=== PATIENT | male | born 1970 | race Caucasian/White ===

== ENCOUNTER 2021-04-28 14:20 | Inpatient (IN) | payer OTHER, SELFPAY ==
[2021-04-28 15:27] LABS: #Monocytes 0.4 10x3/uL (0.0-1.1); #Neutrophils 2.5 10x3/uL (1.5-8.4); %Basophils 0.3 % (0.0-2.0); %Lymphocytes 16.9 % (18.0-47.0); %Monocytes 11.2 % (0.0-10.0); Hemoglobin 15.8 g/dL (13.5-17.5); Mean Corpuscular Hemoglobin 31.9 pg (27.0-33.0); Mean Corpuscular Volume 93.9 fl (81.2-95.1); Mean Platelet Volume 10.8 fl (7.4-10.4); Platelet Count 117 10x3/uL (150-450); RBC Distribution Width 12.4 % (11.5-14.5); Red Blood Cell (RBC) Count 4.95 10x6/uL (4.32-5.72); White Blood Cell (WBC) Count 3.6 10x3/uL (3.5-10.5)
[2021-04-28] MEDS ORDERED: Aspirin 325 MG TAB ONE (15:32)
[2021-04-28] MEDS ORDERED: Acetaminophen 500 MG TAB ONE (15:32)
[2021-04-28] MEDS ORDERED: Ibuprofen 200 MG TAB ONE (15:32)
[2021-04-28 15:37] LABS: ALT (SGPT) 56 U/L (8-55); AST (SGOT) 43 U/L (5-34); Albumin 4.1 g/dL (3.5-5.0); Alkaline Phosphatase 132 U/L (40-110); Anion Gap 13 mmol/L (10-20); BUN (Urea Nitrogen) 10 mg/dL (8.9-20.6); Bilirubin, Total 0.6 mg/dL (0.2-1.2); Calc. Creatinine Clearance 0 mL/min (70-130); Calcium 8.4 mg/dL (7.8-10.44); Carbon Dioxide 25 mmol/L (22-29); Chloride 103 mmol/L (98-107); Globulin 2.9 g/dL (2.4-3.5); Glucose 268 mg/dL (70-105); Potassium 3.8 mmol/L (3.5-5.1); Sodium 137 mmol/L (136-145)
[2021-04-28] MEDS ORDERED: Dexamethasone 10 MG/ML VIAL ONE (18:01)
[2021-04-28] MEDS ORDERED: Ondansetron ODT 4 MG TAB PO PRN (18:18)
[2021-04-28] MEDS ORDERED: Calcium Carbonate 500 MG ChewTAB PO PRN (18:18)
[2021-04-28] MEDS ORDERED: Senokot S 8.6-50 MG TAB PO PRN (18:18)
[2021-04-28] MEDS ORDERED: Acetaminophen 325 MG TAB PO PRN (18:18)
[2021-04-28] MEDS ORDERED: Albuterol 200 PUFF (6.7GM INHALER) INH PRN (18:22)
[2021-04-28 19:09] LABS: Troponin I Less than 0.010 ng/mL (< 0.028)
[2021-04-28] MEDS: Guaifenesin DM 100-10/5 ML UDCUP PO PRN (21:50)
[2021-04-28] MEDS: Benzonatate 100 MG CAP PO PRN (21:51)
[2021-04-28 22:05] LABS: Troponin I Less than 0.010 ng/mL (< 0.028)
[2021-04-28 22:28] VITALS: BMI 30.4
[2021-04-29 04:22] LABS: #Monocytes 0.2 10x3/uL (0.0-1.1); #Neutrophils 2.7 10x3/uL (1.5-8.4); %Basophils 0.3 % (0.0-2.0); %Lymphocytes 14.1 % (18.0-47.0); %Monocytes 6.5 % (0.0-10.0); %Neutrophils 78.2 % (40.0-75.0); Hemoglobin 16.2 g/dL (13.5-17.5); Mean Corpuscular HGB CONC 34.4 g/dL (32.0-36.0); Mean Corpuscular Hemoglobin 32.5 pg (27.0-33.0); Mean Corpuscular Volume 94.4 fl (81.2-95.1); Mean Platelet Volume 11.2 fl (7.4-10.4); Platelet Count 119 10x3/uL (150-450); RBC Distribution Width 12.6 % (11.5-14.5); Red Blood Cell (RBC) Count 4.99 10x6/uL (4.32-5.72); White Blood Cell (WBC) Count 3.4 10x3/uL (3.5-10.5)
[2021-04-29 04:36] LABS: Anion Gap 14 mmol/L (10-20); BUN (Urea Nitrogen) 14 mg/dL (8.9-20.6); Calc. Creatinine Clearance 0 mL/min (70-130); Calcium 8.8 mg/dL (7.8-10.44); Carbon Dioxide 24 mmol/L (22-29); Chloride 104 mmol/L (98-107); Glucose 353 mg/dL (70-105); Sodium 138 mmol/L (136-145)
[2021-04-29] MEDS ORDERED: Dextrose 5% in Water 1,000 ML IV PRN (07:00)
[2021-04-29] MEDS ORDERED: Dextrose 50% Abboject 50 ML SYRINGE SLOW IVP PRN (07:00)
[2021-04-29] MEDS ORDERED: HumaLOG 300 UNITS/3 ML VIAL SC PRN (07:00)
[2021-04-29] MEDS: Lisinopril 10 MG TAB PO SCH (07:09)
[2021-04-29] MEDS ORDERED: NPH, Human Insulin Isophane 300 UNIT/3 ML VIAL SC SCH (07:15)
[2021-04-29] MEDS: Guaifenesin DM 100-10/5 ML UDCUP PO PRN ×2 (08:52→20:32)
[2021-04-29] MEDS: Ascorbic Acid 500 mg Chewable Tablet PO SCH (08:52)
[2021-04-29] MEDS: Zinc Sulfate 220 MG CAP PO SCH (08:52)
[2021-04-29] MEDS: Dexamethasone 20 MG/5 ML VIAL SLOW IVP SCH ×2 (08:52→20:32)
[2021-04-29] MEDS: Cholecalciferol 1,000 UNITS (25 MCG) TAB PO SCH (08:52)
[2021-04-29] MEDS: Enoxaparin Sodium 40 MG/0.4 ML SYRINGE SC SCH (08:52)
[2021-04-29] MEDS ORDERED: Dexamethasone 4 mg/ml Vial SLOW IVP SCH (09:00)
[2021-04-29] MEDS ORDERED: REMDESIVIR 200 MG in Sodium Chloride 0.9% 250 ML 210 ML IV SCH (11:30)
[2021-04-29 12:31] LABS: Hemoglobin A1c 8.4 % (4.0-6.0)
[2021-04-29] MEDS ORDERED: Lantus 1000 UNITS/10 ML VIAL SC SCH (13:00)
[2021-04-29] MEDS ORDERED: Amlodipine 5 MG TAB PO PRN (13:30)
[2021-04-29] MEDS ORDERED: Amlodipine 5 MG TAB PO SCH (13:30)
[2021-04-29] MEDS: Ventolin HFA Inhaler 60 PUFF INHALER INH SCH ×2 (15:25→20:33)
[2021-04-29] MEDS: HumaLOG 300 UNITS/3 ML VIAL SC PRN (20:31)
[2021-04-29] MEDS: Benzonatate 100 MG CAP PO PRN (20:32)
[2021-04-30] MEDS: Ventolin HFA Inhaler 60 PUFF INHALER INH SCH ×4 (00:28→20:31)
[2021-04-30 05:28] LABS: #Monocytes 0.6 10x3/uL (0.0-1.1); #Neutrophils 5.1 10x3/uL (1.5-8.4); %Basophils 0.2 % (0.0-2.0); %Lymphocytes 11.6 % (18.0-47.0); %Monocytes 9.6 % (0.0-10.0); %Neutrophils 78.1 % (40.0-75.0); Mean Corpuscular Hemoglobin 31.7 pg (27.0-33.0); Mean Corpuscular Volume 93.3 fl (81.2-95.1); Mean Platelet Volume 10.9 fl (7.4-10.4); Platelet Count 154 10x3/uL (150-450); RBC Distribution Width 12.4 % (11.5-14.5); Red Blood Cell (RBC) Count 5.04 10x6/uL (4.32-5.72); White Blood Cell (WBC) Count 6.5 10x3/uL (3.5-10.5)
[2021-04-30] MEDS: HumaLOG 300 UNITS/3 ML VIAL SC PRN ×4 (05:28→20:22)
[2021-04-30 05:48] LABS: Anion Gap 17 mmol/L (10-20); BUN (Urea Nitrogen) 17 mg/dL (8.9-20.6); Calc. Creatinine Clearance 0 mL/min (70-130); Calcium 8.9 mg/dL (7.8-10.44); Carbon Dioxide 23 mmol/L (22-29); Chloride 103 mmol/L (98-107); Glucose 286 mg/dL (70-105); Potassium 4.6 mmol/L (3.5-5.1); Sodium 138 mmol/L (136-145)
[2021-04-30 05:49] LABS: ALT (SGPT) 41 U/L (8-55); Albumin 3.9 g/dL (3.5-5.0); Alkaline Phosphatase 121 U/L (40-110); Bilirubin, Total 0.6 mg/dL (0.2-1.2); Protein, Total 7.4 g/dL (6.0-8.3)
[2021-04-30 05:51] LABS: AST (SGOT) 37 U/L (5-34); Bilirubin, Direct 0.2 mg/dL (0.1-0.3)
[2021-04-30] MEDS ORDERED: Lantus 1000 UNITS/10 ML VIAL SC SCH ×2 (09:00)
[2021-04-30] MEDS: Cholecalciferol 1,000 UNITS (25 MCG) TAB PO SCH (09:37)
[2021-04-30] MEDS: Amlodipine 5 MG TAB PO SCH (09:37)
[2021-04-30] MEDS: Ascorbic Acid 500 mg Chewable Tablet PO SCH (09:37)
[2021-04-30] MEDS: Enoxaparin Sodium 40 MG/0.4 ML SYRINGE SC SCH (09:38)
[2021-04-30] MEDS: Dexamethasone 20 MG/5 ML VIAL SLOW IVP SCH ×2 (09:38→20:27)
[2021-04-30] MEDS: Lisinopril 10 MG TAB PO SCH (09:39)
[2021-04-30] MEDS: REMDESIVIR 100 MG in Sodium Chloride 0.9% 250 ML 230 ML IV SCH (09:39)
[2021-04-30] MEDS: Benzonatate 100 MG CAP PO PRN ×2 (09:40→20:22)
[2021-04-30] MEDS: Zinc Sulfate 220 MG CAP PO SCH (09:40)
[2021-04-30] MEDS: Guaifenesin DM 100-10/5 ML UDCUP PO PRN ×2 (09:40→20:22)
[2021-05-01] MEDS: Ventolin HFA Inhaler 60 PUFF INHALER INH SCH ×4 (00:05→21:03)
[2021-05-01 04:48] LABS: #Monocytes 0.7 10x3/uL (0.0-1.1); #Neutrophils 6.1 10x3/uL (1.5-8.4); %Basophils 0.1 % (0.0-2.0); %Lymphocytes 9.7 % (18.0-47.0); %Monocytes 9.7 % (0.0-10.0); %Neutrophils 79.8 % (40.0-75.0); Hemoglobin 15.1 g/dL (13.5-17.5); Mean Corpuscular Hemoglobin 31.5 pg (27.0-33.0); Mean Corpuscular Volume 95.4 fl (81.2-95.1); Platelet Count 174 10x3/uL (150-450); RBC Distribution Width 12.3 % (11.5-14.5); Red Blood Cell (RBC) Count 4.79 10x6/uL (4.32-5.72); White Blood Cell (WBC) Count 7.6 10x3/uL (3.5-10.5)
[2021-05-01 05:05] LABS: ALT (SGPT) 29 U/L (8-55); AST (SGOT) 20 U/L (5-34); Albumin 3.6 g/dL (3.5-5.0); Alkaline Phosphatase 110 U/L (40-110); Bilirubin, Direct 0.2 mg/dL (0.1-0.3); Bilirubin, Total 0.5 mg/dL (0.2-1.2); Protein, Total 6.6 g/dL (6.0-8.3)
[2021-05-01 05:11] LABS: Anion Gap 15 mmol/L (10-20); BUN (Urea Nitrogen) 27 mg/dL (8.9-20.6); Calc. Creatinine Clearance 0 mL/min (70-130); Calcium 8.6 mg/dL (7.8-10.44); Carbon Dioxide 24 mmol/L (22-29); Chloride 103 mmol/L (98-107); Glucose 382 mg/dL (70-105); Potassium 4.4 mmol/L (3.5-5.1); Sodium 138 mmol/L (136-145)
[2021-05-01] MEDS: HumaLOG 300 UNITS/3 ML VIAL SC PRN ×4 (05:44→21:28)
[2021-05-01] MEDS: Amlodipine 5 MG TAB PO SCH (08:25)
[2021-05-01] MEDS: Ascorbic Acid 500 mg Chewable Tablet PO SCH (08:25)
[2021-05-01] MEDS: Cholecalciferol 1,000 UNITS (25 MCG) TAB PO SCH (08:25)
[2021-05-01] MEDS: Enoxaparin Sodium 40 MG/0.4 ML SYRINGE SC SCH (08:26)
[2021-05-01] MEDS: Dexamethasone 20 MG/5 ML VIAL SLOW IVP SCH ×2 (08:26→21:34)
[2021-05-01] MEDS: Lantus 1000 UNITS/10 ML VIAL SC SCH (08:26)
[2021-05-01] MEDS: Zinc Sulfate 220 MG CAP PO SCH (08:27)
[2021-05-01] MEDS: Benzonatate 100 MG CAP PO PRN ×3 (08:27→21:34)
[2021-05-01] MEDS: Lisinopril 10 MG TAB PO SCH (08:27)
[2021-05-01] MEDS: Guaifenesin DM 100-10/5 ML UDCUP PO PRN ×3 (08:27→21:34)
[2021-05-01] MEDS: REMDESIVIR 100 MG in Sodium Chloride 0.9% 250 ML 230 ML IV SCH (10:17)
[2021-05-02] MEDS ORDERED: HumaLOG 300 UNITS/3 ML VIAL SC SCH ×2 (00:45→02:45)
[2021-05-02] MEDS: Ventolin HFA Inhaler 60 PUFF INHALER INH SCH ×4 (01:15→19:42)
[2021-05-02 05:08] LABS: ALT (SGPT) 30 U/L (8-55); AST (SGOT) 23 U/L (5-34); Albumin 3.4 g/dL (3.5-5.0); Alkaline Phosphatase 105 U/L (40-110); Anion Gap 14 mmol/L (10-20); BUN (Urea Nitrogen) 22 mg/dL (8.9-20.6); Bilirubin, Direct 0.2 mg/dL (0.1-0.3); Bilirubin, Total 0.4 mg/dL (0.2-1.2); Calc. Creatinine Clearance 0 mL/min (70-130); Calcium 8.1 mg/dL (7.8-10.44); Carbon Dioxide 23 mmol/L (22-29); Chloride 104 mmol/L (98-107); Glucose 310 mg/dL (70-105); Potassium 3.9 mmol/L (3.5-5.1); Protein, Total 6.1 g/dL (6.0-8.3); Sodium 137 mmol/L (136-145)
[2021-05-02 05:16] LABS: #Monocytes 0.9 10x3/uL (0.0-1.1); #Neutrophils 6.5 10x3/uL (1.5-8.4); %Basophils 0.1 % (0.0-2.0); %Lymphocytes 7.8 % (18.0-47.0); %Monocytes 11.4 % (0.0-10.0); %Neutrophils 79.2 % (40.0-75.0); Hemoglobin 14.7 g/dL (13.5-17.5); Mean Corpuscular HGB CONC 33.9 g/dL (32.0-36.0); Mean Corpuscular Hemoglobin 31.6 pg (27.0-33.0); Mean Corpuscular Volume 93.3 fl (81.2-95.1); Mean Platelet Volume 10.2 fl (7.4-10.4); Platelet Count 176 10x3/uL (150-450); RBC Distribution Width 12.5 % (11.5-14.5); Red Blood Cell (RBC) Count 4.65 10x6/uL (4.32-5.72); White Blood Cell (WBC) Count 8.2 10x3/uL (3.5-10.5)
[2021-05-02] MEDS: HumaLOG 300 UNITS/3 ML VIAL SC PRN ×4 (05:27→20:46)
[2021-05-02] MEDS: Dexamethasone 20 MG/5 ML VIAL SLOW IVP SCH (09:08)
[2021-05-02] MEDS: Cholecalciferol 1,000 UNITS (25 MCG) TAB PO SCH (09:08)
[2021-05-02] MEDS: Amlodipine 5 MG TAB PO SCH (09:08)
[2021-05-02] MEDS: Enoxaparin Sodium 40 MG/0.4 ML SYRINGE SC SCH (09:08)
[2021-05-02] MEDS: Ascorbic Acid 500 mg Chewable Tablet PO SCH (09:08)
[2021-05-02] MEDS: Benzonatate 100 MG CAP PO PRN ×2 (09:09→20:46)
[2021-05-02] MEDS: Lantus 1000 UNITS/10 ML VIAL SC SCH ×2 (09:09→20:46)
[2021-05-02] MEDS: Lisinopril 10 MG TAB PO SCH (09:09)
[2021-05-02] MEDS: Zinc Sulfate 220 MG CAP PO SCH (09:09)
[2021-05-02] MEDS: Guaifenesin DM 100-10/5 ML UDCUP PO PRN ×3 (09:09→20:45)
[2021-05-02] MEDS: REMDESIVIR 100 MG in Sodium Chloride 0.9% 250 ML 230 ML IV SCH (10:30)
[2021-05-02] MEDS ORDERED: Lantus 1000 UNITS/10 ML VIAL SC SCH (14:00)
[2021-05-03] MEDS: Ventolin HFA Inhaler 60 PUFF INHALER INH SCH ×3 (01:15→10:56)
[2021-05-03] MEDS: HumaLOG 300 UNITS/3 ML VIAL SC PRN (05:08)
[2021-05-03 05:13] LABS: Anion Gap 13 mmol/L (10-20); BUN (Urea Nitrogen) 23 mg/dL (8.9-20.6); Calc. Creatinine Clearance 0 mL/min (70-130); Calcium 7.9 mg/dL (7.8-10.44); Carbon Dioxide 25 mmol/L (22-29); Chloride 104 mmol/L (98-107); Glucose 270 mg/dL (70-105); Potassium 3.9 mmol/L (3.5-5.1); Sodium 138 mmol/L (136-145)
[2021-05-03 05:15] LABS: ALT (SGPT) 30 U/L (8-55); AST (SGOT) 25 U/L (5-34); Albumin 3.3 g/dL (3.5-5.0); Alkaline Phosphatase 102 U/L (40-110); Bilirubin, Direct 0.2 mg/dL (0.1-0.3); Bilirubin, Total 0.4 mg/dL (0.2-1.2); Protein, Total 5.8 g/dL (6.0-8.3)
[2021-05-03 05:29] LABS: #Monocytes 1.2 10x3/uL (0.0-1.1); #Neutrophils 6.4 10x3/uL (1.5-8.4); %Basophils 0.5 % (0.0-2.0); %Lymphocytes 9.1 % (18.0-47.0); %Monocytes 13.4 % (0.0-10.0); %Neutrophils 72.9 % (40.0-75.0); Hemoglobin 13.9 g/dL (13.5-17.5); Mean Corpuscular HGB CONC 33.7 g/dL (32.0-36.0); Mean Corpuscular Hemoglobin 31.8 pg (27.0-33.0); Mean Corpuscular Volume 94.5 fl (81.2-95.1); Mean Platelet Volume 10.6 fl (7.4-10.4); Platelet Count 204 10x3/uL (150-450); RBC Distribution Width 12.2 % (11.5-14.5); Red Blood Cell (RBC) Count 4.37 10x6/uL (4.32-5.72); White Blood Cell (WBC) Count 8.8 10x3/uL (3.5-10.5)
[2021-05-03] MEDS ORDERED: Dexamethasone 20 MG/5 ML VIAL SLOW IVP SCH (09:00)
[2021-05-03] MEDS: Cholecalciferol 1,000 UNITS (25 MCG) TAB PO SCH (09:54)
[2021-05-03] MEDS: Amlodipine 5 MG TAB PO SCH (09:54)
[2021-05-03] MEDS: Ascorbic Acid 500 mg Chewable Tablet PO SCH (09:54)
[2021-05-03] MEDS: Enoxaparin Sodium 40 MG/0.4 ML SYRINGE SC SCH (09:55)
[2021-05-03] MEDS: Lisinopril 10 MG TAB PO SCH (09:55)
[2021-05-03] MEDS: Lantus 1000 UNITS/10 ML VIAL SC SCH (09:55)
[2021-05-03] MEDS: REMDESIVIR 100 MG in Sodium Chloride 0.9% 250 ML 230 ML IV SCH (09:55)
[2021-05-03] MEDS: Guaifenesin DM 100-10/5 ML UDCUP PO PRN (09:56)
[2021-05-03] MEDS: Zinc Sulfate 220 MG CAP PO SCH (09:56)
[2021-05-03] MEDS: Benzonatate 100 MG CAP PO PRN (09:56)
[2021-05-03 12:28] VITALS: BP 167/98; TEMP 97.9
== END 2021-05-03 12:00 | disposition home or self-care (01) | DRG 177 ==
LOC: CSHERS 14:20 → CSHTELE 20:34 → OBSVTOIN 04-29 07:03
PROVIDERS: ADMIT Student in an Organized Health Care Education/Training Program; ATTEND Family Medicine
PROC: XW033E5 Introduction of Remdesivir Anti-infective into Peripheral Vein, Percutaneous Approach, New Technology Group 5 (ICD-10-PCS; principal; 2021-04-29)
PROC: 8E0ZXY6 Isolation (ICD-10-PCS; 2021-04-29)
DX: U07.1 COVID-19 (principal); J12.82 Pneumonia due to coronavirus disease 2019; J96.01 Acute respiratory failure with hypoxia; I25.10 Atherosclerotic heart disease of native coronary artery without angina pectoris; E11.9 Type 2 diabetes mellitus without complications; E83.119 Hemochromatosis, unspecified; I10 Essential (primary) hypertension; Z88.0 Allergy status to penicillin; Z87.442 Personal history of urinary calculi; Z98.890 Other specified postprocedural states
CPT/HCPCS: 36415; 36416; 71045; 71275; 80048; 80053; 80076; 82728; 83036; 83605; 84484; 85025; 85379; 86140; 93005; 94760; 96374; G0378; J0248; J1100; J1650; J1815; J7050

== ENCOUNTER 2022-04-13 04:07 | Emergency (ER) | payer BC ==
[2022-04-13] MEDS ORDERED: Ketorolac Tromethamine 30 MG/ML VIAL ONE (04:44)
[2022-04-13] MEDS ORDERED: Ondansetron PF 4 MG/2 ML Vial ONE (04:45)
[2022-04-13 04:57] LABS: #Eosinphils 0.1 10x3/uL (0.0-0.5); #Monocytes 0.7 10x3/uL (0.0-1.1); %Basophils 0.4 % (0.0-2.0); %Eosinophils 1.6 % (0.0-6.0); %Lymphocytes 16.5 % (18.0-47.0); %Monocytes 10.2 % (0.0-10.0); %Neutrophils 70.6 % (40.0-75.0); Hemoglobin 10.5 g/dL (13.5-17.5); Mean Corpuscular Hemoglobin 32.5 pg (27.0-33.0); Mean Corpuscular Volume 98.5 fl (81.2-95.1); Mean Platelet Volume 10.1 fl (7.4-10.4); Platelet Count 270 10x3/uL (150-450); RBC Distribution Width 13.2 % (11.5-14.5); Red Blood Cell (RBC) Count 3.23 10x6/uL (4.32-5.72); White Blood Cell (WBC) Count 7.1 10x3/uL (3.5-10.5)
[2022-04-13 05:09] LABS: Bilirubin Neg (Negative); Blood, Urine Negative (Negative); Clarity Clear (Clear); Glucose, Urine (Dipstick) >=1000 mg/dL (Negative); Ketone, Urine Negative (Negative); Leukocyte Negative (Negative); Nitrite Negative (Negative); Protein, Urine (Dipstick) 15 mg/dl (Neg-Trace); Urobilinogen Normal mg/dL (Less than 2)
[2022-04-13 05:12] LABS: ALT (SGPT) 11 U/L (8-55); AST (SGOT) 11 U/L (5-34); Albumin 4.1 g/dL (3.5-5.0); Alkaline Phosphatase 100 U/L (40-110); Anion Gap 12 mmol/L (10-20); BUN (Urea Nitrogen) 24 mg/dL (8.9-20.6); Bilirubin, Total 0.3 mg/dL (0.2-1.2); Calc. Creatinine Clearance 0 mL/min (70-130); Calcium 9.1 mg/dL (7.8-10.44); Carbon Dioxide 23 mmol/L (22-29); Chloride 108 mmol/L (98-107); Estimated GFR 48; Globulin 2.7 g/dL (2.4-3.5); Glucose 215 mg/dL (70-105); Potassium 4.1 mmol/L (3.5-5.1); Protein, Total 6.8 g/dL (6.0-8.3); Sodium 139 mmol/L (136-145)
[2022-04-13] MEDS ORDERED: Morphine 4 MG/ML VIAL ONE (05:55)
[2022-04-13 06:52] LABS: SARS-CoV-2 NAA Rapid Test Not Detected (NotDetected)
== END 2022-04-13 08:53 | disposition short-term general hospital (02) ==
LOC: CSHERS 04:07
DX: N13.2 Hydronephrosis with renal and ureteral calculous obstruction (principal); I10 Essential (primary) hypertension; I25.10 Atherosclerotic heart disease of native coronary artery without angina pectoris; F17.220 Nicotine dependence, chewing tobacco, uncomplicated; E78.00 Pure hypercholesterolemia, unspecified; Z20.822 Contact with and (suspected) exposure to COVID-19
CPT/HCPCS: 74176; 80053; 81003; 85025; 96374; 96375; J1885; J2270; J2405; U0002